=== PATIENT | female | born 1990 | race Caucasian/White ===

== ENCOUNTER 2020-03-16 17:35 | Emergency (ER) | payer MEDICAID, OTHER ==
--- NOTE | 2020-03-16 18:40 | EDM.PDOC ---
ED HPI GENERAL MEDICAL PROBLEM - General Chief Complaint: General Stated Complaint: fever, chills, body aches Time Seen by Provider: 03/16/20 18:10 Source of Information: Reports: Patient History Limitations: Reports: No Limitations - History of Present Illness INITIAL COMMENTS - FREE TEXT/NARRATIVE: Patient concerned that she has had sensation of fevers/chills/body aches for two days. Had Mar 11. No increased pain around incision. No swelling or drainage. Has not measured her temp. Denies HEENT changes/headache/vision change/sore throat/runny nose. No RESP changes/cough/SOB/wheeze No CV changes/palpitations No GI changes/is eating well/no emesis or bowel changes No frequency/burning with urination but is having issues urinating well since "catheter pulled out". Takes longer than usual to void. No neuro changes. Baby is doing well/feeding well. Did develop incisional abscess last body aches Pain Score (Numeric/FACES): 4 - Related Data Allergies Allergy/AdvReac Type Severity Reaction Status Date / Time amoxicillin Allergy Anaphylactic Verified 03/16/20 17:49 Shock benzocaine Allergy Facial Verified 03/16/20 17:49 [From Chloraseptic Sore Swelling Throat] dyclonine [From Sucrets] Allergy Anaphylactic Verified 03/16/20 17:49 Shock guaifenesin [From Mucinex D] Allergy Shortness Verified 03/16/20 17:49 of Breath, facial swelling hexylresorcinol Allergy Anaphylactic Verified 03/16/20 17:49 [From Sucrets] Shock menthol Allergy Facial Verified 03/16/20 17:49 [From Chloraseptic Sore Swelling Throat] pseudoephedrine Allergy Shortness Verified 03/16/20 17:49 [From Mucinex D] of Breath, facial swelling vancomycin Allergy Rash Verified 03/16/20 17:49 Home Meds: Home Meds Acetaminophen [Tylenol Extra Strength] 1,000 mg PO Q6HR PRN 03/16/20 [History] Docusate Sodium [Colace] 100 mg PO DAILY 03/16/20 [History] Ferrous Sulfate [Iron] 325 mg PO BID 03/16/20 [History] Ibuprofen 800 mg PO QAM PRN 03/16/20 [History] Pnv No.95/Ferrous Fum/Folic AC [ Tablet] 1 each PO DAILY 03/16/20 [History] clindamycin HCL [Cleocin] 300 mg PO Q6H #20 cap 03/16/20 [Rx] oxyCODONE 1 - 2 tab PO Q4HR PRN 03/16/20 [History] Past Medical History HEENT History: Reports: Allergic Rhinitis, Other (See Below) Other HEENT History: Seasonal 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 ED EXAM, GENERAL - Physical Exam Exam: See Below Exam Limited By: No Limitations General Appearance: Alert, WD/WN, No Apparent Distress Eye Exam: Bilateral Eye: EOMI, PERRL Ears: Hearing Grossly Normal Nose: No: Nasal Deformity, Nasal Swelling, Nasal Drainage Throat/Mouth: Normal Lips, Normal Voice, No Airway Compromise Head: Atraumatic, Normocephalic Neck: Supple, Non-Tender, Full Range of Motion Respiratory/Chest: No Respiratory Distress, Lungs Clear, Normal Breath Sounds, No Accessory Muscle Use Cardiovascular: No Murmur, Tachycardia GI/Abdominal: Normal Bowel Sounds, Soft, No Distention, Tender (around incision). No: Guarding, Rigid, Rebound (Female) Exam: Deferred Rectal (Female) Exam: Deferred Back Exam: No: CVA Tenderness (L), CVA Tenderness (R), Muscle Spasm Extremities: Normal Inspection, Normal Capillary Refill Neurological: Alert, Oriented, Normal Cognition, Normal Gait, No Motor/Sensory Deficits Psychiatric: Normal Affect, Normal Mood Skin Exam: Wound/Incision (appears to be healing well. No drainage/redness noted. ) Course - Vital Signs Last Recorded V/S: Last Vital Signs Temp 37.9 C 03/16/20 17:37 Pulse 108 H 03/16/20 17:37 Resp 18 03/16/20 17:37 BP 109/75 03/16/20 17:37 Pulse Ox 100 03/16/20 17:37 - Orders/Labs/Meds Orders: Active Orders 24 hr Category Date Time Status CORONAVIRUS COVID-19 PCR PHL Routine Lab 03/16/20 18:27 Ordered CULTURE URINE [RM] Stat Lab 03/16/20 17:49 Received Labs: Laboratory Tests 03/16/20 03/16/20 03/16/20 Range/Units 17:49 17:56 17:56 WBC 8.2 (4.0-10.2) K/uL RBC 2.65 L (3.77-5.09) M/uL Hgb 7.5 L D (11.7-15.5) g/dL Hct 23.9 L* (34.0-46.0) % MCV 90.2 (84.0-98.0) fL MCH 28.3 (28.2-33.3) pg MCHC 31.4 L (31.7-36.0) g/dL RDW 14.5 H (11.2-14.1) % Plt Count 331 (150-350) K/uL Neut % (Auto) 55.5 (45.0-80.0) % Lymph % (Auto) 29.1 (10.0-50.0) % [place] % (Auto) 12.8 (2.0-14.0) % Eos % (Auto) 2.1 (0.0-5.0) % Baso % (Auto) 0.5 (0.0-2.0) % Neut # (Auto) 4.56 (1.40-7.00) K/uL Lymph # (Auto) 2.39 (0.50-3.50) K/uL [place] # (Auto) 1.05 H (0.00-1.00) K/uL Eos # (Auto) 0.17 (0.00-0.50) K/uL Baso # (Auto) 0.04 (0.00-0.20) K/uL POC Sodium 139 (138-146) mmol/L POC Potassium 3.5 (3.5-4.9) mmol/L POC Chloride 105 (98-109) mmol/L POC Total CO2 24 (24-29) mmol/L POC BUN 16 (8-26) mg/dL POC Creatinine 0.7 (0.6-1.3) mg/dL POC Glucose 98 (70-105) mg/dL Specimen Type Urincc Urine Color Light yellow Urine Appearance Clear Urine pH 6.5 (5.0-9.0) Ur Specific [place] 1.010 (1.005-1.030) Urine Protein Negative (NEGATIVE) mg/dL Urine Glucose (UA) Negative (NEGATIVE) mg/dL Urine Ketones Negative (NEGATIVE) mg/dL Urine Occult Blood Small H (NEGATIVE) Urine Nitrite Negative (NEGATIVE) Urine Bilirubin Negative (NEGATIVE) Urine Urobilinogen 0.2 (0.2-1.0) E.U./dL Ur Leukocyte Esterase Small H (NEGATIVE) Urine RBC Not seen /HPF Urine WBC 0-5 /HPF Ur Epithelial Cells Few /LPF Urine Bacteria Few (NONE TO FEW) /HPF Meds: Medications Discontinued Medications Generic Name Dose Route Start Last Admin Trade Name Freq PRN Reason Stop Dose Admin Clindamycin HCl 300 mg 03/16/20 18:42 Cleocin PO 03/16/20 18:43 ONETIME ONE - Re-Assessments/Exams Free Text/Narrative Re-Assessment/Exam: 03/16/20 18:58 CBC/Chem/UA performed. WBC normal as was UA. Hgb 7.5. She has been around that level since the and is taking iron supplementation/being followed for this. Unknown cause for recently developed feeling of fever/chills/aches. Covid testing performed. Given the recent and history of previous abscess will start patient on course of Clindamycin. She is to observe closely for changes/new symptoms and follow up in two days if not improved/earlier if worse. Patient is agreeable with plan. Departure - Departure Time of Disposition: 18:38 Disposition: Home, Self-Care 01 Condition: Good Clinical Impression: Chills with fever Anemia Qualifiers: Anemia type: unspecified type Qualified Code(s): D64.9 - Anemia, unspecified - Discharge Information *PRESCRIPTION DRUG MONITORING PROGRAM REVIEWED*: Not Applicable *COPY OF PRESCRIPTION DRUG MONITORING REPORT IN PATIENT LIANA: Not Applicable Prescriptions: clindamycin HCL [Cleocin] 300 mg PO Q6H #20 cap Referrals: PCP,None [Primary Care Provider] - Forms: ED Department Discharge Additional Instructions: Take it easy. Stay hydrated. Continue to observe for changes and follow up for recheck if you get worse/develop new problems. Feel free to call if you have any questions. Follow up for recheck on Tuesday if you are not feeling better. Sepsis Event Note (ED) - Evaluation Sepsis Screening Result: Possible Sepsis Risk - Focused Exam Vital Signs: Vital Signs Temp Pulse Resp BP Pulse Ox 03/16/20 17:37 37.9 C 108 H 18 109/75 100 - My Orders Last 24 Hours: My Active Orders 03/16/20 17:49 CULTURE URINE [RM] Stat 03/16/20 18:27 CORONAVIRUS COVID-19 PCR PHL Routine - Assessment/Plan Last 24 Hours: My Active Orders 03/16/20 17:49 CULTURE URINE [RM] Stat 03/16/20 18:27 CORONAVIRUS COVID-19 PCR PHL Routine
[2020-03-16] MEDS ORDERED: Clindamycin HCl 150 MG Cap PO ONE (18:42)
== END 2020-03-16 18:55 | disposition home or self-care (01) ==
LOC: LL.ED 17:35
DX: D64.9 Anemia, unspecified (principal); R50.9 Fever, unspecified; Z88.1 Allergy status to other antibiotic agents; Z88.8 Allergy status to other drugs, medicaments and biological substances; Z88.6 Allergy status to analgesic agent; Z79.899 Other long term (current) drug therapy
CPT/HCPCS: 36415; 80047; 81001; 85025; 87086; 99283; U0002

== ENCOUNTER 2020-03-25 15:27 | Emergency (ER) | payer MEDICAID ==
--- NOTE | 2020-03-25 16:59 | EDM.PDOC ---
ED HPI GENERAL MEDICAL PROBLEM - General Chief Complaint: Abdominal Pain Stated Complaint: Abdominal Pain Time Seen by Provider: 03/25/20 15:45 Source of Information: Reports: Patient History Limitations: Reports: No Limitations - History of Present Illness INITIAL COMMENTS - FREE TEXT/NARRATIVE: Pt with low abdominal pain Moves side to side No fever No N/V/D Is breast feeding Has had incision infection with past Onset: Gradual Duration: Day(s):, Intermittent, Waxing/Waning Location: Reports: Abdomen Quality: Reports: Dull Severity: Moderate - Related Data Allergies Allergy/AdvReac Type Severity Reaction Status Date / Time amoxicillin Allergy Anaphylactic Verified 03/25/20 15:29 Shock benzocaine Allergy Facial Verified 03/25/20 15:29 [From Chloraseptic Sore Swelling Throat] dyclonine [From Sucrets] Allergy Anaphylactic Verified 03/25/20 15:29 Shock guaifenesin [From Mucinex D] Allergy Shortness Verified 03/25/20 15:29 of Breath, facial swelling hexylresorcinol Allergy Anaphylactic Verified 03/25/20 15:29 [From Sucrets] Shock menthol Allergy Facial Verified 03/25/20 15:29 [From Chloraseptic Sore Swelling Throat] pseudoephedrine Allergy Shortness Verified 03/25/20 15:29 [From Mucinex D] of Breath, facial swelling vancomycin Allergy Rash Verified 03/25/20 15:29 Home Meds: Home Meds Acetaminophen [Tylenol Extra Strength] 1,000 mg PO Q6HR PRN 03/16/20 [History] Docusate Sodium [Colace] 100 mg PO BID 03/16/20 [History] Ferrous Sulfate [Iron] 325 mg PO BID 03/16/20 [History] Ibuprofen 800 mg PO QAM PRN 03/16/20 [History] Pnv No.95/Ferrous Fum/Folic AC [ Tablet] 1 each PO DAILY 03/16/20 [History] Simethicone [Gas-X] 125 mg PO ASDIRECTED PRN 03/25/20 [History] Past Medical History HEENT History: Reports: Allergic Rhinitis, Other (See Below) 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 HEENT History: Seasonal 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: Hematologic History: Reports: Anemia - Past Surgical History Female Surgical History: Reports: Section Social & Family History - Caffeine Use Caffeine Use: Reports: None ED ROS GENERAL - Review of Systems Review Of Systems: See Below Constitutional: Reports: No Symptoms Respiratory: Reports: No Symptoms Cardiovascular: Reports: No Symptoms GI/Abdominal: Reports: Abdominal Pain ED EXAM, GI/ABD - Physical Exam Exam: See Below Exam Limited By: No Limitations General Appearance: Alert, WD/WN, No Apparent Distress Respiratory/Chest: Lungs Clear Cardiovascular: Regular Rate, Rhythm GI/Abdominal Exam: Other (Mildly tender across low abdomen Incision intact) Course - Vital Signs Last Recorded V/S: Last Vital Signs Temp 98.6 F 03/25/20 15:32 Pulse 92 03/25/20 15:32 Resp 18 03/25/20 15:32 BP 97/65 03/25/20 15:32 Pulse Ox 99 03/25/20 15:32 - Orders/Labs/Meds Labs: Laboratory Tests 03/25/20 03/25/20 Range/Units 15:58 15:58 WBC 8.6 (4.0-10.2) K/uL RBC 3.80 (3.77-5.09) M/uL Hgb 10.5 L D (11.7-15.5) g/dL Hct 34.1 (34.0-46.0) % MCV 89.7 (84.0-98.0) fL MCH 27.6 L (28.2-33.3) pg MCHC 30.8 L (31.7-36.0) g/dL RDW 16.2 H (11.2-14.1) % Plt Count 380 H (150-350) K/uL Neut % (Auto) 61.6 (45.0-80.0) % Lymph % (Auto) 27.9 (10.0-50.0) % [place] % (Auto) 8.1 (2.0-14.0) % Eos % (Auto) 1.9 (0.0-5.0) % Baso % (Auto) 0.5 (0.0-2.0) % Neut # (Auto) 5.33 (1.40-7.00) K/uL Lymph # (Auto) 2.41 (0.50-3.50) K/uL [place] # (Auto) 0.70 (0.00-1.00) K/uL Eos # (Auto) 0.16 (0.00-0.50) K/uL Baso # (Auto) 0.04 (0.00-0.20) K/uL Specimen Type Urinvoid Urine Color Yellow Urine Appearance Slightly cloudy Urine pH 7.5 (5.0-9.0) Ur Specific [place] 1.020 (1.005-1.030) Urine Protein Negative (NEGATIVE) mg/dL Urine Glucose (UA) Negative (NEGATIVE) mg/dL Urine Ketones Negative (NEGATIVE) mg/dL Urine Occult Blood Trace-intact H (NEGATIVE) Urine Nitrite Negative (NEGATIVE) Urine Bilirubin Negative (NEGATIVE) Urine Urobilinogen 0.2 (0.2-1.0) E.U./dL Ur Leukocyte Esterase Moderate H (NEGATIVE) Urine RBC 0-5 /HPF Urine WBC 10-20 H /HPF Ur Epithelial Cells Few /LPF Urine Bacteria Few (NONE TO FEW) /HPF - Re-Assessments/Exams Free Text/Narrative Re-Assessment/Exam: 03/25/20 16:57 See lab Will culture urine Departure - Departure Time of Disposition: 17:00 Disposition: Home, Self-Care 01 Clinical Impression: UTI (urinary tract infection) Qualifiers: Urinary tract infection type: site unspecified Hematuria presence: without jonnie turia Qualified Code(s): N39.0 - Urinary tract infection, site not specified - Discharge Information *PRESCRIPTION DRUG MONITORING PROGRAM REVIEWED*: Not Applicable *COPY OF PRESCRIPTION DRUG MONITORING REPORT IN PATIENT LIANA: Not Applicable Instructions: Urinary Tract Infection, Adult, [id number] Referrals: PCP,None [Primary Care Provider] - Additional Instructions: Rx Macrobid 1 pill twice a day for 10 days Follow up in clinic Sepsis Event Note (ED) - Evaluation Sepsis Screening Result: No Definite Risk - Focused Exam Vital Signs: Vital Signs Temp Pulse Resp BP Pulse Ox 03/25/20 15:32 98.6 F 92 18 97/65 99
== END 2020-03-25 17:10 | disposition home or self-care (01) ==
LOC: LL.ED 15:27
DX: N39.0 Urinary tract infection, site not specified (principal); D64.9 Anemia, unspecified; Z98.890 Other specified postprocedural states; Z88.1 Allergy status to other antibiotic agents; Z88.8 Allergy status to other drugs, medicaments and biological substances; Z79.899 Other long term (current) drug therapy
CPT/HCPCS: 36415; 81001; 85025; 87086; 99283; 99284

== ENCOUNTER 2021-09-20 08:55 | Emergency (ER) | payer MEDICAID ==
[2021-09-20 09:33] LABS: ANION GAP 8.3 meq/L (7-15); CHLORIDE,CL 103 mmol/L (98-107); SODIUM,NA 139 mmol/L (136-145)
[2021-09-20] MEDS: predniSONE 20 MG Tab PO ONE (09:51)
[2021-09-20] MEDS: Meclizine 25 MG Tab PO ONE (09:52)
== END 2021-09-20 09:55 | disposition home or self-care (01) ==
LOC: LL.ED 08:55
DX: J06.9 Acute upper respiratory infection, unspecified (principal); Z88.0 Allergy status to penicillin; Z88.1 Allergy status to other antibiotic agents; Z88.8 Allergy status to other drugs, medicaments and biological substances
CPT/HCPCS: 36415; 80053; 85025; 87081; 87430; 87804; 87807; 99283; A9270; J7512

== ENCOUNTER 2021-10-17 14:45 | Emergency (ER) | payer BC, MEDICAID ==
[2021-10-17 15:42] LABS: ANION GAP 8.9 meq/L (7-15); CHLORIDE,CL 101 mmol/L (98-107); SODIUM,NA 138 mmol/L (136-145)
== END 2021-10-17 16:10 | disposition home or self-care (01) ==
LOC: LL.ED 14:45
DX: R31.0 Gross hematuria (principal); Z88.0 Allergy status to penicillin; Z88.1 Allergy status to other antibiotic agents; Z88.8 Allergy status to other drugs, medicaments and biological substances
CPT/HCPCS: 36415; 80053; 81001; 84703; 85025; 99283